=== PATIENT | female | born 1965 | race Caucasian/White ===

== ENCOUNTER → 2019-02-22 | Outpatient (CLI) | payer OTHER ==
--- NOTE | 2019-02-22 15:07 | KCIC ---
EXAM: AP, oblique and lateral views of the right ankle AP, oblique and lateral views of the right foot DATE: 02/22/2019 12:00 AM INDICATION: Right ankle and foot pain, fall COMPARISON: No Prior FINDINGS: No evidence of acute fracture or dislocation. Calcaneal enthesopathy. Joint spaces are preserved without significant degenerative/proliferative change. Ankle mortise is congruent. Talar dome is intact. IMPRESSION: No evidence of acute fracture or dislocation. Small calcaneal enthesophyte Electronically signed by: Darryl Trujillo MD (02/22/2019 3:05 PM) [facility]
== END | disposition home or self-care (01) ==
LOC: KCIC 11:33
PROVIDERS: ATTEND Family Medicine
DX: S99.911A Unspecified injury of right ankle, initial encounter (principal); M77.31 Calcaneal spur, right foot; W19.XXXA Unspecified fall, initial encounter; Y93.89 Activity, other specified; Y92.89 Other specified places as the place of occurrence of the external cause; Y99.8 Other external cause status
CPT/HCPCS: 73610; 73630